=== PATIENT | female | born 1965 | race Caucasian/White ===

== ENCOUNTER 2016-05-18 12:07 | Emergency (ER) | payer BC, MEDICARE ==
[2016-05-18] MEDS ORDERED: MORPHINE 4 MG/ML SYR ONE (12:56)
== END 2016-05-18 14:24 | disposition home or self-care (01) ==
LOC: FASTR 12:07
DX: S80.01XA Contusion of right knee, initial encounter (principal); W01.0XXA Fall on same level from slipping, tripping and stumbling without subsequent striking against object, initial encounter; Y92.009 Unspecified place in unspecified non-institutional (private) residence as the place of occurrence of the external cause; M06.9 Rheumatoid arthritis, unspecified; G25.81 Restless legs syndrome; I10 Essential (primary) hypertension; K21.9 Gastro-esophageal reflux disease without esophagitis
CPT/HCPCS: 96372